=== PATIENT | male | born 1960 | race Two or more races ===

== ENCOUNTER 2016-11-21 11:58 | Inpatient (IN) | payer OTHER ==
--- NOTE | 2016-11-21 12:08 | ED PDOC ---
HPI: Seizure Time Seen by Provider: 11/21/16 12:02 Chief Complaint (Provider): status epilepticus History Per: Other ([place] [employer]) History/Exam Limitations: clinical condition Recent Seizure Activity Began: Just Before Arrival Number Of Seizures: Multiple Quality Of Seizure: Generalized Additional Complaint(s): 56yo male witnessed falling inside [employer]. Patient then sat down in a chair and reportedly experienced seizure like activity. Police state patient was then alert and able to provide his name, however shortly after began experiencing seizure like activity again. Patient experienced seizure like activity while transported by EMS as well. Pt reportedly denied having Hx seizures or any other condition when speaking to police at [employer]. Past Medical History Reviewed: Historical Data, Nursing Documentation, Vital Signs, Unable To Obtain Vital Signs: Last Vital Signs Temp 99 F 11/21/16 16:22 Pulse 133 H 11/21/16 17:48 Resp 16 11/21/16 16:22 BP 108/70 11/21/16 16:22 Pulse Ox 100 11/21/16 17:48 - Medical History PMH: HTN, Hypercholesterolemia - Family History Family History: States: No Known Family Hx - Social History Alcohol: > 2 Drinks/Day - Home Medications Home Medications: Ambulatory Orders Medication Instructions Recorded Fenofibrate [Triglide] 160 mg PO DAILY 11/21/16 Simvastatin [Simvastatin] 20 mg PO DAILY 11/21/16 - Allergies Allergies/Adverse Reactions: Allergies Allergy/AdvReac Type Severity Reaction Status Date / Time Unobtainable Allergy Verified 11/21/16 12:09 Review of Systems Review Of Systems: ROS cannot be obtained secondary to pt's inabilty to answer questions. Physical Exam - Reviewed Nursing Documentation Reviewed: Yes Vital Signs Reviewed: Yes - Physical Exam Head Exam: Positive for: ATRAUMATIC, NORMAL INSPECTION, NORMOCEPHALIC Eye Exam: Positive for: Other (constricted pupils 2mm bilaterally) Neck: Positive for: Supple Cardiovascular/Chest: Positive for: Tachycardia. Negative for: Irregularly Irregular Respiratory: Negative for: Respiratory Distress Extremity: Positive for: Other (Good strength to all extremities.) - Laboratory Results Result Diagrams: 11/21/16 12:21 11/21/16 12:21 - ECG ECG: Positive for: Interpreted By Me, Viewed By Me ECG Rhythm: Positive for: Sinus Tachycardia. Negative for: ST/T Changes Rate: 133 O2 Sat by Pulse Oximetry: 100 (RA) Pulse Ox Interpretation: Normal - Radiology X-Ray: Read By Radiologist X-Ray Interpretation: No Acute Disease - Critical Care Total Time (In Min): 60 Documented Critical Care: Time excludes all time spent performint seperately billable procedures Medical Decision Making Medical Decision Makin status epilepticus. CT Head w/o, Labs, VBG shock panel, Ativan ordered. 1214 101.3*F rectal temp 1300 CT Head w/o Impression No acute intracranial hemorrhage. Minor chronic periventricular white matter ischemic changes. Mild generalized volume loss. 1445 Patient reassessed. He has become agitated again, is confused, unable to orient. Requires sedation and 4 point restraints for safety. Discussed with Dr. Aggarwal who recommends keppra IV and MRI brain w/ contrast. He states consider LP only if he does not become more lucid later. 5:15p - case d/w DR. Peacock for admission. Case d/w Dr. Remigio pastor for telemetry unless Dr Peacock has additional concerns. Results of discussion with family members: Jonnie presently in [place]. Patient has had alcohol issues in the past. Brother Epi, a physician in [place], noted some tremors 2 weeks ago when he visited. He noticed that the patient did not appear normal. Daughter, with whom he lives with, reports no active drinking problems. Patient takes the following medications: Benicar HCT 40-12.5 Diphenhydramine for sleep Fenofibrate 160mg Simvastatin 20mg 5:30p - patient is awake and alert now. oriented. Patient relays that he drinks regularly 3-4 times per week at least 3-4 drinks each time. He and his brother both started drinking in high school. His brother stopped years ago and continued. He admits to drinking too much and to having blackouts in the past. P Disposition - Clinical Impression Clinical Impression: Altered mental status, Seizures - Patient ED Disposition Is Patient to be Admitted: Yes Doctor Will See Patient In The: Hospital - Disposition Disposition Time: 17:48 Condition: GUARDED - Pt Status Changed To: Hospital Disposition Of: Inpatient - Admit Certification Admit to Inpatient:: After my assessment, the patient will require hospitalization for at least two midnights. This is because of the severity of symptoms shown, intensity of services needed, and/or the medical risk in this patient being treated as an outpatient. - POA Present On Arrival: None Additional Comments - Additional Comments Additional Comments: Scribe Attestation: Documented by Modesto Paiz acting as a scribe for Janeen Chambers MD. Provider Scribe Attestation: All medical record entries made by the Scribe were at my direction and personally dictated by me. I have reviewed the chart and agree that the record accurately reflects my personal performance of the history, physical exam, medical decision making, and the department course for this patient. I have also personally directed, reviewed, and agree with the discharge instructions and disposition. Procedures - Lumbar Puncture Consent Obtained: Written Consent Time Out Performed: Yes Patient Position: Right Lateral Decubitius Skin Prep: Povidone-Iodine 1% Local Anesthetic Used: Lidocaine 2% Spinal Needle Gauge: 20G Interspace Used: L4-L5 Complications: Unable to obtain CSF
[2016-11-21 12:09] VITALS: BMI 25.8
[2016-11-21 12:27] LABS: BASO % 0.5 % (0.0-2.0); EOS # 0.2 K/uL (0.0-0.7); EOS % 1.9 % (0.0-4.0); HEMATOCRIT 46.3 % (35.0-51.0); LYMPH # 4.8 K/uL (1.0-4.3); LYMPH % 49.3 % (20.0-40.0); MEAN CELL VOLUME 100.2 fl (80.0-94.0); MEAN CORPUSCULAR HEMOGLOBIN 34.1 pg (27.0-31.0); MEAN CORPUSCULAR HGB CONC 34.1 g/dL (33.0-37.0); MEAN PLATELET VOLUME 7.9 fl (7.2-11.7); MONO # 1.1 K/uL (0.0-0.8); MONO % 11.5 % (0.0-10.0); NEUT # 3.6 K/uL (1.8-7.0); NEUT % 36.8 % (50.0-75.0); NRBC % 0.1 % (0.0-0.0); RED CELL DISTRIBUTION WIDTH 13.7 % (11.5-14.5); WHITE BLOOD COUNT 9.7 K/uL (4.8-10.8)
[2016-11-21 12:36] LABS: ALB/GLOB RATIO 1.4 (1.0-2.1); ALCOHOL SERUM < 10 mg/dl (0-10); ALKALINE PHOSPHATASE 107 U/L (38-126); ALT/SGPT 66 U/L (21-72); AST/SGOT 100 U/L (17-59); BILIRUBIN,TOTAL 0.7 mg/dl (0.2-1.3); BLOOD UREA NITROGEN 13 mg/dl (9-20); CALCIUM 9.7 mg/dL (8.4-10.2); CARBON DIOXIDE 23 mmol/L (22-30); CHLORIDE 104 mmol/L (98-107); GFR AFRICAN-AMERICAN > 60; GLUCOSE,RANDOM 129 mg/dL (75-110); POTASSIUM 4.1 MMOL/L (3.6-5.0); SODIUM 142 mmol/l (132-148); TOTAL PROTEIN 8.3 G/DL (6.3-8.2)
[2016-11-21 12:44] LABS: CARBAMAZEPINE < 3.0 ug/mL (4.0-12.0)
[2016-11-21 12:46] LABS: VALPROIC ACID < 10.0 ug/mL (50.0-100.0)
[2016-11-21 12:47] LABS: LITHIUM < 0.2 MMOL/L (0.6-1.2)
--- NOTE | 2016-11-21 12:56 | CT ---
PROCEDURE: CT HEAD WITHOUT CONTRAST. HISTORY: Acute seizure. COMPARISON: None available. TECHNIQUE: Axial computed tomography images were obtained through the head/brain without intravenous contrast. Radiation dose: Total exam DLP = 3048.26 mGy-cm. This CT exam was performed using one or more of the following dose reduction techniques: Automated exposure control, adjustment of the mA and/or kV according to patient size, and/or use of iterative reconstruction technique. FINDINGS: HEMORRHAGE: No acute parenchymal, subarachnoid or extra-axial hemorrhage. BRAIN: No evidence of large acute infarct. Minor chronic periventricular white matter ischemic changes are noted. . VENTRICLES: Mild generalized volume loss. CALVARIUM: There are no acute calvarial fractures. PARANASAL SINUSES: Visualized paranasal sinuses well-developed and currently well-aerated. MASTOID AIR CELLS: Unremarkable as visualized. No inflammatory changes. OTHER FINDINGS: None. IMPRESSION: No acute intracranial hemorrhage. Minor chronic periventricular white matter ischemic changes. Mild generalized volume loss.
[2016-11-21] MEDS ORDERED: levETIRAcetam 1,000 MG in Sodium Chloride 0.9% 100 ML IVPB ONE (14:53)
--- NOTE | 2016-11-21 20:11 | CP.PCM.CON ---
History of Present Illness - History of Present Illness History of Present Illness: Mr. Staley is a 56-year-old man, who states that he drinks about 5 alcoholic beverages on a daily basis and has been doing so for a long time. However, his last drink was two days ago. He was in the grocery store today, when he fell, and had a generalized tonic-clonic seizure. There is report of 3 other seizures that the patient experienced in EMS and in the ED. He was given 6 mg of Ativan. He was subsequently lethargic and post-ictal for about 6 hours. Currently, the patient is back to baseline and complains of a headache rated 3/ 10 in severity. He had no other complaints. Review of Systems - Review of Systems All systems: reviewed and no additional remarkable complaints except Past Patient History - Past Social History Alcohol: > 2 Drinks/Day - CARDIAC Hx Hypercholesterolemia: Yes Hx Hypertension: Yes - PSYCHIATRIC Hx Substance Use: No Meds Allergies/Adverse Reactions: Allergies Allergy/AdvReac Type Severity Reaction Status Date / Time Unobtainable Allergy Verified 11/21/16 12:09 Physical Exam - Constitutional Appears: Well - Head Exam Head Exam: ATRAUMATIC, NORMAL INSPECTION, NORMOCEPHALIC - Eye Exam Eye Exam: EOMI, Normal appearance, PERRL - ENT Exam ENT Exam: Mucous Membranes Moist, Normal Exam - Neck Exam Neck exam: Positive for: Normal Inspection - Respiratory Exam Respiratory Exam: Clear to Auscultation Bilateral, NORMAL BREATHING PATTERN - Cardiovascular Exam Cardiovascular Exam: REGULAR RHYTHM, +S1, +S2 - GI/Abdominal Exam GI & Abdominal Exam: Normal Bowel Sounds, Soft. absent: Tenderness - Rectal Exam Rectal Exam: Deferred - Extremities Exam Extremities exam: Positive for: normal inspection - Back Exam Back exam: NORMAL INSPECTION - Neurological Exam Neurological exam: Alert, CN II-XII Intact, Normal Gait, Oriented x3, Reflexes Normal - Expanded Neurological Exam Expanded Patient oriented to: person, place, time Cerebellar Function: Finger to Nose: Normal Upper motor neuron: Babinski Sign: Normal Sensory exam: Lower Extremity 2 Point Discrimination: Normal, Lower Extremity Light Touch: Normal, Lower Extremity Pin Prick: Normal, Lower Extremity Temperature: Normal, Upper Extremity 2 Point Discrimination: Normal, Upper Extremity Light Touch: Normal, Upper Extremity Pin Prick: Normal, Upper Extremity Temperature: Normal Neuro motor strength exam: Left Upper Extremity: 5, Right Upper Extremity: 5, Left Lower Extremity: 5, Right Lower Extremity: 5 DTR: Achilles Tendon Left: 2+, Achilles Tendon Right: 2+, Bicep Left: 2+, Bicep Right: 2+, Brachioradialis Left: 2+, Brachioradialis Right: 2+, Patellar Left: 2 +, Patellar Right: 2+, Tricep Left: 2+, Tricep Right: 2+ - Psychiatric Exam Psychiatric exam: Normal Affect, Normal Mood - Skin Skin Exam: Dry, Intact, Normal Color, Warm Results - Vital Signs Recent Vital Signs: Last Vital Signs Temp 98 F 11/21/16 19:20 Pulse 90 11/21/16 19:20 Resp 22 11/21/16 19:20 BP 134/78 11/21/16 19:20 Pulse Ox 98 11/21/16 19:20 - Labs Result Diagrams: 11/21/16 12:21 11/21/16 12:21 - Imaging and Cardiology CT scan - head Status: Image reviewed by me, Report reviewed by me (No acute findings. ) Assessment & Plan (1) Seizures Assessment and Plan: Likely due to alcohol withdrawal. However, due to the patient's age and no history of seizures with alcohol withdrawal in the past, I recommend obtaining an MRI of the brain with and without contrast. An EEG is also recommended. CIWA protocol is recommended. Will consider starting gabapentin at 300 mg TID, if MRI is normal. Thank you for this consultation. Status: Acute Priority: High
[2016-11-22] MEDS ORDERED: Patient's Own Med (Olmesartan/Hydrochlorothiazide [Benicar Hct 40-12.5 Mg Tablet] 1 TAB) PO SCH (09:00)
[2016-11-22] MEDS: Multivitamin With Minerals Tab PO SCH (09:07)
--- NOTE | 2016-11-23 03:27 | HP ---
HISTORY OF PRESENT ILLNESS: This is a 56-year-old male with history of hypertension, hypercholesterolemia on antihypertensive medications, presented to Emergency Room after passing out in [employer] , The patient while he was being evaluated in the Emergency Room, he had two seizures. The patient was shaking. The patient was in postictal state and as he woke up, he admitted that he had been drinking and he has a drinking alcohol problem. The patient states he was not drinking as he was trying to stop after his daughter came back from school for summer vacation. The patient was evaluated in the Emergency Room, a CAT scan of the head was done that was negative. Subsequently , the patient was admitted to the hospital for further management. REVIEW OF SYSTEMS: Other review of systems is negative. ALLERGIES: No known allergy. HOME MEDICATIONS: Unknown. PAST MEDICAL HISTORY: Hypertension and hypercholesterolemia. SOCIAL HISTORY: No history of smoking. Does have history of ETOH abuse and no other substance abuse. FAMILY HISTORY: Noncontributory. PHYSICAL EXAMINATION: GENERAL: The patient is in bed, comfortable, not in any cardiopulmonary distress. VITAL SIGNS: Blood pressure 154/76, temperature 97.7, respiratory rate 20, and pulse is 96. HEENT: Pupils equal, reactive to light. Normal-appearing mucosa of the conjunctivae, oropharyngeal and nasal membrane mucosa. NECK: Supple, no JVD, no carotid bruit, no lymph node, no thyromegaly. CHEST AND LUNGS: Bilateral symmetrical expansion, good air exchange, no rales, no rhonchi. CARDIOVASCULAR: PMI not localized. S1, S2. No additional sounds. ABDOMEN: Normoactive bowel sounds, no tenderness, no organomegaly, no masses. EXTREMITIES: No cyanosis, no clubbing, no edema. CENTRAL NERVOUS SYSTEM: Alert, awake, oriented x 3. No neurological deficits could be appreciated. The patient also was found to be having bilateral tremors. ASSESSMENT: 1. Impending delirium tremens. 2. Alcohol withdrawal seizure. PLAN: Will give Ativan 2 mg every 6 hours. Continue monitoring patient on telemetry. as tolerated. Give patient thiamine and multivitamins. director of rehabilitative services for possible rehabilitation. Tiffany Peacock MD cc: [id number] TT: 11/23/2016 03:27:33 an MTDD
[2016-11-23] MEDS ORDERED: Gadodiamide 287 MG/ML VIAL (15ML) IV ONE (07:45)
[2016-11-23] MEDS: Multivitamin With Minerals Tab PO SCH (09:09)
--- NOTE | 2016-11-23 12:06 | MRI ---
PROCEDURE: MRI BRAIN WITH AND WITHOUT CONTRAST HISTORY: seizures ams, as per neurology COMPARISON: Comparison made with prior CT scan 11/21/2016. TECHNIQUE: Multiplanar, multisequence MR images of the brain following intravenous injection of approximately intravenous contrast enhancement. Study is limited by motion artifact FINDINGS: HEMORRHAGE: No acute parenchymal, subarachnoid or extra-axial hemorrhage. DWI: No evidence of acute- subacute infarcts seen on diffusion-weighted imaging. BRAIN PARENCHYMA: There are a few scattered focal areas of increased T2 signal seen in the parietal deep white matter bilaterally. In addition, minimal chronic periventricular white matter ischemic changes seen in the apparent frontal horn regions. None of these changes exhibit contrast enhancement. Changes are nonspecific though may represent minimal chronic sequela of small vessel disease. Note that evaluation of hippocampal formations limited the due to motion artifact as well as the lack of high-resolution coronal T2 and FLAIR sequences through the temporal lobes No parenchymal of or extra-axial masses or collections. No evidence of abnormal meningeal enhancement. ENHANCEMENT: No abnormal enhancement as above. VENTRICLES: Ventricular and sulcal size are within range of normal for this patient's stated age. CRANIUM: There are no acute calvarial abnormalities. ORBITS: Orbits and contents grossly unremarkable. PARANASAL SINUSES/MASTOIDS: Clear VASCULAR SYSTEM: Visualized major vascular flow voids at skull base are patent. OTHER FINDINGS: None . IMPRESSION: Limited motion degraded study. No acute intracranial hemorrhage or infarct. There appears to be some very minor chronic appearing white matter changes that are nonspecific though may represent minor chronic sequela of small vessel disease. No enhancing parenchymal nor extra-axial masses or collections.
--- NOTE | 2016-11-23 17:05 | CP.PCM.PN ---
Subjective - Date & Time of Evaluation Date of Evaluation: 11/23/16 Time of Evaluation: 13:00 - Subjective Subjective: Mr. Staley was seen and examined today at bedside. His was present. He had no new complaints. There were no acute events overnight. Objective - Vital Signs/Intake and Output Vital Signs (last 24 hours): Temp Pulse Resp BP Pulse Ox 97.7 F 91 H 20 120/75 97 11/23/16 15:51 11/23/16 15:51 11/23/16 15:51 11/23/16 15:51 11/23/16 15:51 - Medications Medications: Current Medications Atorvastatin Calcium (Lipitor) 10 mg PO DAILY [facility] Last Admin: 11/23/16 09:09 Dose: 10 mg Fenofibrate (Tricor) 145 mg PO DAILY [facility] Last Admin: 11/23/16 09:10 Dose: 145 mg Home Med (Simvastatin [Simvastatin]) 20 mg PO DAILY [facility] Hydrochlorothiazide (Microzide) 12.5 mg PO DAILY [facility] Last Admin: 11/23/16 09:10 Dose: 12.5 mg Lorazepam (Ativan) 2 mg IVP Q8 [facility] Last Admin: 11/23/16 12:24 Dose: 2 mg Losartan Potassium (Cozaar) 100 mg PO DAILY [facility] Last Admin: 11/23/16 09:08 Dose: 100 mg Multivitamins/Minerals (Therapeutic-M Tab) 1 tab PO DAILY [facility] Last Admin: 11/23/16 09:09 Dose: 1 tab Thiamine HCl (Vitamin B1 Tab) 100 mg PO DAILY [facility] Last Admin: 11/23/16 09:10 Dose: 100 mg - Neck Exam Neck Exam: Full ROM, Normal Inspection. absent: Lymphadenopathy - Respiratory Exam Respiratory Exam: Clear to Ausculation Bilateral, NORMAL BREATHING PATTERN - Cardiovascular Exam Cardiovascular Exam: REGULAR RHYTHM, +S1, +S2. absent: Murmur - Neurological Exam Neurological Exam: Alert, Awake, CN II-XII Intact, Normal Gait, Oriented x3 Neuro motor strength exam: Left Upper Extremity: 5, Right Upper Extremity: 5, Left Lower Extremity: 5, Right Lower Extremity: 5 - Psychiatric Exam Psychiatric exam: Normal Affect, Normal Mood Assessment and Plan (1) Seizures Assessment & Plan: MRI of the brain was reviewed and was normal. The seizure likely occurred due to alcohol withdrawal. Continue tapering benzo. No need for AED. Follow up with outpatient neurology PRN. No further recommendations at this time. Status: Acute
--- NOTE | 2016-11-23 18:59 | CARD ---
APPROVED REPORT EKG Measurement Heart [id number] <Conclusion> Sinus tachycardia Otherwise normal ECG
[2016-11-24] MEDS: Multivitamin With Minerals Tab PO SCH (08:55)
--- NOTE | 2016-11-24 16:05 | EEG ---
DATE: 11/24/2016 DIAGNOSIS: Seizures. MEDICATIONS: Reviewed via nurse's reconciliation sheet. INTERPRETATION: This is a 16-channel intraoperative recording. Background activity is composed of 8 -9 cycles per second. There was a small amount of beta activity 16-20 cycles per second seen in this recording. There was a small amount of theta activity 5-7 cycles per second seen in this tracing. Drowsiness was characterized by mixed beta and theta activities. Sleep was characterized by vertex t ransient waves, sleep spindles and bilateral slowing. Photic stimulation showed no change in the tra cing. No paroxysmal activity noted in this recording. CONCLUSION: This is an abnormal drowsy electroencephalogram. No evidence of epileptiform activity. Please clinically correlate. Kyle Bey MD cc: [id number] TT: 11/24/2016 16:04:36 Confirmation # [id number] Dictation # [id number] mn
--- NOTE | 2016-11-24 22:39 | PN ---
DATE: 11/24/2016 He is not in any cardiopulmonary distress and the patient is still tachycardic. PHYSICAL EXAMINATION: VITAL SIGNS: Heart rate 104, blood pressure 120/70, temperature 98.1, respiratory rate 18. HEENT: Pupils equal, reactive to light. Normal-appearing mucosa of the conjunctivae, oropharyngeal and nasal membrane mucosa. NECK: Supple, no JVD, no carotid bruit, no lymph node, no thyromegaly. CHEST AND LUNGS: Bilateral symmetrical expansion, good air exchange, no rales, no rhonchi. CARDIOVASCULAR: PMI not localized. S1, S2. No additional sounds. ABDOMEN: Normoactive bowel sounds, no tenderness, no organomegaly, no masses. EXTREMITIES: No cyanosis, no clubbing, no edema. CENTRAL NERVOUS SYSTEM: Alert, awake, oriented x 3. No neurological deficits could be appreciated. ASSESSMENT: 1. Alcohol withdrawal. 2. Seizure 3. Hypertension. 4. Hypercholesterolemia. PLAN: Continue current Ativan 2 mg every 8 hours, thiamine, multivitamin and current medications. Tiffany Peacock MD cc: [id number] TT: 11/24/2016 22:38:33 Confirmation # [id number] Dictation # [id number] dn
--- NOTE | 2016-11-24 22:54 | PN ---
DATE: 11/23/2016 SUBJECTIVE: The patient was seen on 11/23/2016. He still had shaking and he was on Ativan 2 mg every 6 hours. OBJECTIVE: VITAL SIGNS: Blood pressure was 129/75, temperature 97.9, respiratory rate 20, and pulse is 90. HEENT: Pupils equal, reactive to light. Normal-appearing mucosa of the conjunctivae, oropharyngeal and nasal membrane mucosa. NECK: Supple, no JVD, no carotid bruit, no lymph node, no thyromegaly. CHEST AND LUNGS: Bilateral symmetrical expansion, good air exchange, no rales, no rhonchi. CARDIOVASCULAR: PMI not localized. S1, S2. No additional sounds. ABDOMEN: Normoactive bowel sounds, no tenderness, no organomegaly, no masses. EXTREMITIES: No cyanosis, no clubbing, no edema. CENTRAL NERVOUS SYSTEM: Alert, awake, oriented x 3. No neurological deficits could be appreciated. ASSESSMENT: 1. Alcohol withdrawal seizure. 2. History of alcohol abuse. 3. Hypertension. 4. Hypercholesterolemia. PLAN: We will decrease Ativan to 2 mg every 8 hours, continue thiamine, multivitamin and current ant ihypertensive medications. Social service for possible alcohol rehabilitation. Tiffany Peacock MD cc: 167 TT: 11/24/2016 22:53:45 Confirmation # [id number] Dictation # [id number] dn
[2016-11-25] MEDS: Multivitamin With Minerals Tab PO SCH (08:50)
--- NOTE | 2016-11-25 16:20 | PN ---
DATE: 11/25/2016 SUBJECTIVE: The patient is seen today on 11/25/2016. He has less symptoms of alcohol withdrawal, and he had no more seizures. Currently on Ativan around the clock. PHYSICAL EXAMINATION: VITAL SIGNS: Temperature 98.5, blood pressure 105/65, respiratory rate 18, and pulse is 108. HEENT: Pupils equal, reactive to light. Normal-appearing mucosa of the conjunctivae, oropharyngeal and nasal membrane mucosa. NECK: Supple. No JVD. No carotid bruit. No lymph node. No thyromegaly. CHEST AND LUNGS: Bilateral symmetrical expansion, good air exchange, no rales, no rhonchi. CARDIOVASCULAR: PMI not localized. S1, S2. No additional sounds. ABDOMEN: Normoactive bowel sounds, no tenderness, no organomegaly, no masses. EXTREMITIES: No cyanosis, no clubbing, no edema. CENTRAL NERVOUS SYSTEM: Alert, awake, oriented x 3. No neurological deficits could be appreciated. ASSESSMENT: 1. Alcohol withdrawal seizure. 2. History of alcohol abuse. 3. Hypertension. 4. Hypercholesterolemia. PLAN: Decrease Ativan to every 12 hours and keep monitoring on telemetry for any alcohol withdrawal symptoms. Tiffany Peacock MD cc: 167 TT: 11/25/2016 16:20:05 Confirmation # [id number] Dictation # [id number] mn
[2016-11-26 09:05] VITALS: RESP 20
[2016-11-26] MEDS: Multivitamin With Minerals Tab PO SCH (09:59)
--- NOTE | 2016-11-26 18:19 | PN ---
DATE: 11/26/2016 SUBJECTIVE: The patient is seen today in 11/26/2016. He is not in any cardiopulmonary distress and the patient had 1 dose of Ativan 2 mg in the morning. PHYSICAL EXAMINATION: VITAL SIGNS: For the first day, the patient's heart rate down to 88, blood pressure 117/74, temperat ure 98.5, respiratory rate 20. HEENT: Pupils equal, reactive to light. Normal-appearing mucosa of the conjunctivae, oropharyngeal and nasal membrane mucosa. NECK: Supple, no JVD, no carotid bruit, no lymph node, no thyromegaly. CHEST AND LUNGS: Bilateral symmetrical expansion. Good air exchange. No rales. No rhonchi. CARDIOVASCULAR: PMI not localized. S1, S2. No additional sounds. ABDOMEN: Normoactive bowel sounds, no tenderness, no organomegaly, no masses. EXTREMITIES: No cyanosis, no clubbing, no edema. CENTRAL NERVOUS SYSTEM: Alert, awake, oriented x 3. No neurological deficits could be appreciated. ASSESSMENT: 1. Alcohol withdrawal and seizure. 2. History of alcohol abuse. 3. Hypertension. 4. Hypercholesterolemia. PLAN: We will taper off Ativan and continue monitoring the patient for any impending DT symptoms. Tiffany Peacock MD cc: 167 TT: 11/26/2016 18:18:06 Confirmation # [id number] Dictation # [id number] [id number]
[2016-11-27 08:28] VITALS: BP 120/79; PULSE 86; TEMP 97.5; O2SAT 100
[2016-11-27] MEDS: Multivitamin With Minerals Tab PO SCH (08:59)
[2016-11-27 09:57] LABS: MEAN CELL VOLUME 99.4 fl (80.0-94.0); MEAN CORPUSCULAR HEMOGLOBIN 33.5 pg (27.0-31.0); MEAN CORPUSCULAR HGB CONC 33.7 g/dL (33.0-37.0); WHITE BLOOD COUNT 5.5 K/uL (4.8-10.8)
--- NOTE | 2016-11-27 22:13 | DS ---
REASON FOR ADMISSION: This is a 56-year-old male with history of hypertension and hypercho lesterolemia, was admitted after alcohol withdrawal seizure. COURSE OF HOSPITALIZATION: The patient was admitted to medical floor and he was on telemetry a nd impending DTs. The patient's symptoms of agitation and unsteadiness were gradually improving as t he patient was placed on a tapering dose of Ativan. Ativan was tapered off and the patient was bryan nued on thiamine and multivitamin and he was discharged home to continue these, thiamine and multivit shah, as well as to his preadmission antihypertensive medications and follow up with his primary care physician. FINAL DIAGNOSES: 1. Alcohol withdrawal seizure. 2. Impending delirium tremens. 3. History of alcohol abuse. 4. Hypertension. 5. Hypercholesterolemia. [facility] Rafael Peacock MD cc: 167 TT: 11/27/2016 22:12:17 nm
== END 2016-11-27 11:47 | disposition home or self-care (01) | DRG 897 ==
LOC: H.ER 11:58 → H.ERHOLD 17:20 → H.TEL 21:42
PROVIDERS: ADMIT Internal Medicine; ATTEND Internal Medicine
DX: F10.239 Alcohol dependence with withdrawal, unspecified (principal); R56.9 Unspecified convulsions; Y90.0 Blood alcohol level of less than 20 mg/100 ml; E78.00 Pure hypercholesterolemia, unspecified; I10 Essential (primary) hypertension; Z78.1 Physical restraint status; R45.1 Restlessness and agitation